=== PATIENT | female | born 1945 | race Caucasian/White ===

== ENCOUNTER 2018-10-11 14:13 | Outpatient (CLI) | payer MEDICARE, MEDICAID ==
--- NOTE | 2018-10-11 15:33 | RAD ---
RIGHT HUMERUS TWO VIEWS: 10/11/18 HISTORY: Patient fell three weeks ago with pain. There are mild arthritic changes of the AC joint. There is more pronounced changes of the glenohumera l joint space with prominent osteophytic changes of the femoral head and neck junction. There is no s igns of fracture or dislocation. 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 POS: [facility]
== END 2018-10-11 14:14 | disposition home or self-care (01) ==
LOC: BICRAD 14:13
PROVIDERS: ATTEND Family Medicine
DX: M79.601 Pain in right arm (principal); R30.0 Dysuria; M19.011 Primary osteoarthritis, right shoulder
CPT/HCPCS: 81001; 87086

== ENCOUNTER 2021-01-06 10:06 | Outpatient (CLI) | payer MEDICARE, MEDICAID ==
[2021-01-06 12:37] LABS: Bilirubin Neg (Negative); Blood, Urine 10 (Negative); Clarity Clear (Clear); Glucose, Urine (Dipstick) Normal (Negative); Ketone, Urine Negative (Negative); Leukocyte 500 (Negative); Nitrite Negative (Negative); Protein, Urine (Dipstick) 15 mg/dl (Neg-Trace); Urobilinogen Normal mg/dL (Less than 2)
[2021-01-06 12:56] LABS: WBC/HPF 21-50 HPF (0-3)
[2021-01-06 12:57] LABS: RBC/HPF 0-3 HPF (0-3)
[2021-01-06 12:59] LABS: Bacteria/HPF Rare-Few HPF (None Seen); Mucous/LPF Rare LPF (<2+); Squamous Epithelial None Seen HPF (0-3); Transitional Epithelial 0-3 HPF (None Seen)
[2021-01-06 13:07] LABS: Prothrombin Time 10.8 sec (9.5-12.1)
[2021-01-06 13:11] LABS: Anion Gap 12 mmol/L (10-20); BUN (Urea Nitrogen) 15 mg/dL (9.8-20.1); Calc. Creatinine Clearance 0 mL/min (70-130); Calcium 9.6 mg/dL (7.8-10.44); Carbon Dioxide 26 mmol/L (23-31); Chloride 107 mmol/L (98-107); Glucose 79 mg/dL (83-110); Potassium 4.4 mmol/L (3.5-5.1); Sodium 141 mmol/L (136-145)
[2021-01-06 13:12] LABS: #Basophils 0.1 10x3/uL (0.0-0.2); #Eosinphils 0.4 10x3/uL (0.0-0.5); #Monocytes 0.5 10x3/uL (0.0-1.1); #Neutrophils 4.8 10x3/uL (1.5-8.4); %Basophils 0.8 % (0.0-2.0); %Eosinophils 5.1 % (0.0-6.0); %Lymphocytes 18.4 % (18.0-47.0); %Monocytes 7.3 % (0.0-10.0); %Neutrophils 68.1 % (40.0-75.0); Hemoglobin 14.6 g/dL (12.0-15.5); Mean Corpuscular HGB CONC 34.3 g/dL (32.0-36.0); Mean Corpuscular Hemoglobin 32.5 pg (27.0-33.0); Mean Corpuscular Volume 94.9 fl (81.6-98.3); Platelet Count 147 10x3/uL (150-450); RBC Distribution Width 14.6 % (11.5-14.5); Red Blood Cell (RBC) Count 4.49 10x6/uL (3.90-5.03); White Blood Cell (WBC) Count 7.1 10x3/uL (3.5-10.5)
[2021-01-07 00:46] LABS: SARS-CoV-2 NAA Rapid Test Not Detected (NotDetected)
== END 2021-01-06 10:07 | disposition home or self-care (01) ==
LOC: LABBT 10:06
PROVIDERS: ATTEND Orthopaedic Surgery
DX: Z01.818 Encounter for other preprocedural examination (principal); M16.12 Unilateral primary osteoarthritis, left hip; Z20.822 Contact with and (suspected) exposure to COVID-19
CPT/HCPCS: 80048; 81001; 85025; 85610; 87081; 93005; U0002; U0005; 93010

== ENCOUNTER 2021-02-16 10:56 | Outpatient (CLI) | payer MEDICARE, MEDICAID ==
[2021-02-16 13:12] LABS: ALT (SGPT) 17 U/L (8-55); AST (SGOT) 21 U/L (5-34); Albumin 4.5 g/dL (3.4-4.8); Alkaline Phosphatase 113 U/L (40-110); Anion Gap 13 mmol/L (10-20); BUN (Urea Nitrogen) 16 mg/dL (9.8-20.1); Bilirubin, Total 0.5 mg/dL (0.2-1.2); Calc. Creatinine Clearance 0 mL/min (70-130); Calcium 9.9 mg/dL (7.8-10.44); Carbon Dioxide 28 mmol/L (23-31); Cardiac Risk 5.4 (Less than 4.5); Chloride 106 mmol/L (98-107); Cholesterol 238 mg/dl (< 200 Desired); Globulin 2.8 g/dL (2.4-3.5); Glucose 85 mg/dL (83-110); HDL Cholesterol 44 mg/dL (>60 Neg Risk); LDL Cholesterol, Calculated 175 mg/dL; Potassium 4.6 mmol/L (3.5-5.1); Protein, Total 7.3 g/dL (5.8-8.1); Sodium 142 mmol/L (136-145); Triglycerides 94 mg/dL (Less than 150)
[2021-02-16 13:28] LABS: #Basophils 0.1 10x3/uL (0.0-0.2); #Eosinphils 0.4 10x3/uL (0.0-0.5); #Monocytes 0.5 10x3/uL (0.0-1.1); #Neutrophils 4.3 10x3/uL (1.5-8.4); %Basophils 1.2 % (0.0-2.0); %Eosinophils 5.8 % (0.0-6.0); %Lymphocytes 21.1 % (18.0-47.0); %Monocytes 7.8 % (0.0-10.0); Hemoglobin 14.4 g/dL (12.0-15.5); Mean Corpuscular HGB CONC 35.4 g/dL (32.0-36.0); Mean Corpuscular Hemoglobin 33.6 pg (27.0-33.0); Mean Corpuscular Volume 95.1 fl (81.6-98.3); Platelet Count 163 10x3/uL (150-450); RBC Distribution Width 16.1 % (11.5-14.5); Red Blood Cell (RBC) Count 4.28 10x6/uL (3.90-5.03); White Blood Cell (WBC) Count 6.7 10x3/uL (3.5-10.5)
[2021-02-17 15:39] LABS: SARS-CoV-2 PCR by NAA Not Detected (NotDetected)
== END 2021-02-16 10:57 | disposition home or self-care (01) ==
LOC: LABBT 10:56
PROVIDERS: ATTEND Internal Medicine Cardiovascular Disease
DX: Z01.812 Encounter for preprocedural laboratory examination (principal); R94.39 Abnormal result of other cardiovascular function study; Z20.822 Contact with and (suspected) exposure to COVID-19
CPT/HCPCS: 80053; 80061; 85025; U0003; U0005

== ENCOUNTER 2021-03-23 | Inpatient (IN) | payer MEDICARE, MEDICAID | END 2021-03-26 14:07 | disposition home health service (06) | DRG 470 | PROVIDERS: ADMIT Orthopaedic Surgery | PROC: 0SR90J9 Replacement of Right Hip Joint with Synthetic Substitute, Cemented, Open Approach (ICD-10-PCS; principal; 2021-03-23) ==

== ENCOUNTER → 2022-07-07 | Emergency (ER) | payer OTHER, MEDICARE, MEDICAID | LOC: ERS 10:23 | DX: S92.351A Displaced fracture of fifth metatarsal bone, right foot, initial encounter for closed fracture (principal); S60.222A Contusion of left hand, initial encounter; S20.01XA Contusion of right breast, initial encounter; E03.9 Hypothyroidism, unspecified; I10 Essential (primary) hypertension; Z79.899 Other long term (current) drug therapy; V89.2XXA Person injured in unspecified motor-vehicle accident, traffic, initial encounter; N18.30 Chronic kidney disease, stage 3 unspecified | CPT/HCPCS: 36415; 71045; 80048; 83970; 93005; 94760 ==